=== PATIENT | male | born 1980 | race Caucasian/White ===

== ENCOUNTER 2016-09-22 21:59 | Emergency (ER) | payer SELFPAY ==
--- NOTE | 2016-09-22 23:03 | ER Document Report ---
ED General - General Chief Complaint: Numbness of Arm Stated Complaint: LEFT ARM NUMBNESS Time Seen by Provider: 09/22/16 23:00 Notes: Patient is a 36-year-old male who presents with complaint of sudden onset of left arm numbness that lasted approximately 1-2 minutes. Patient says it occurred while he was riding in the car. He never had any weakness in his arm. Never had a headache. No chest pain. No shortness of breath. No back pain. He denies any pain associated with his symptoms. No recent fevers. She has never had this in the past. He does have chronic hypertension. His blood pressure when he arrived was systolically 200. Patient says his blood pressure typically does run high. His heart rate is also elevated. Patient says his heart rate is also typically high. He says he also has high cholesterol. He takes hydralazine and hydrochlorothiazide. He said he did not take his hydrochlorothiazide today. TRAVEL OUTSIDE OF THE [place] IN LAST 30 DAYS: No Past Medical History - Social History Smoking Status: Never Smoker Frequency of alcohol use: None Drug Abuse: None Family History: Reviewed & Not Pertinent Patient has suicidal ideation: No Patient has homicidal ideation: No Renal/ Medical History: Denies: Hx Peritoneal Dialysis - Immunizations Hx Diphtheria, Pertussis, Tetanus Vaccination: No Review of Systems - Review of Systems Notes: My Normal Review Basic REVIEW OF SYSTEMS: CONSTITUTIONAL : Denies fever, chills, or sweats. Denies recent illness. EENT: Denies eye, ear, throat, or mouth pain or symptoms. Denies nasal or sinus congestion. CARDIOVASCULAR: Denies chest pain. RESPIRATORY: Denies cough, cold, or chest congestion. Denies shortness of breath, difficulty breathing, or wheezing. GASTROINTESTINAL: Denies abdominal pain. Denies nausea, vomiting, or diarrhea. Denies constipation. Last BM: MUSCULOSKELETAL: Denies neck or back pain or joint pain or swelling. SKIN: Denies rash or skin lesions. NEUROLOGICAL: Denies altered mental status or loss of consciousness. Denies headache. Denies weakness or paralysis or loss of use of either side. Denies problems with gait or speech. Brief numbness in left arm which is now completely resolved. ALL OTHER SYSTEMS REVIEWED AND NEGATIVE. Physical Exam - Vital signs Vitals: Temp Pulse Resp BP Pulse Ox 98.2 F 112 H 20 200/18 H 96 05/20/17 22:16 09/22/16 22:16 09/22/16 22:16 09/22/16 22:16 09/22/16 22:16 - Notes Notes: General Appearance: Well nourished, alert, cooperative, no acute distress, no obvious discomfort. Vitals: reviewed, See vital signs table. Head: no swelling or tenderness to the head Eyes: PERRL, EOMI, Conjuctiva clear Mouth: No decreasd moisture Neck: Supple, no neck tenderness, No thyromegaly Lungs: No wheezing, No rales, No rhonci, No accessory muscle use, good air exchange bilaterally. Heart: Normal rate, Regular rythm, No murmur, no rub Abdomen: Normal BS, soft, No rigidity, No abdominal tenderness, No guarding, no rebound, no abdominal masses, no organomegaly Extremities: strength 5/5 in all extremities, good pulses in all extremities, no swelling or tenderness in the extremities, no edema. Skin: warm, dry, appropriate color, no rash Neuro: speech clear, oriented x 3, normal affect, responds appropriately to questions. Cranial nerves II through XII are intact. Distal sensation intact. Patient moves all extremities without difficulty. Course - Vital Signs Vital signs: Temp Pulse Resp BP Pulse Ox 98.2 F 112 H 16 178/109 H 96 09/22/16 22:16 09/22/16 22:16 09/23/16 01:01 09/23/16 01:00 09/23/16 01:01 - Laboratory Result Diagrams: 09/22/16 23:45 09/22/16 23:45 Laboratory results interpreted by me: 09/22/16 09/22/16 23:45 23:45 WBC 11.6 H RDW 15.2 H Absolute Neutrophils 8.5 H Glucose 132 H Creatine Kinase 336 H - EKG Interpretation by Me Additional EKG results interpreted by me: 09/22/16 23:02 EKG is reviewed and interpreted by me. EKG shows sinus tachycardia with a rate of [address] segment elevation or depression. No ischemic T-wave inversions. NM interval, QRS duration, QT intervals are within normal range. No old EKG available for comparison. - Transfer of Care Notes: 09/23/16 06:06 I did reevaluate the patient. Patient remains tachycardic and hypertensive. I did talk to the patient at length about my concerns. I informed him that I want to perform a CT injury of the chest being that he continues to have tachycardia and hypertension. I do think dissection is less likely being he has no pain; however, his continued hypertension and tachycardia is concerning to me. I informed him what I am doing the CT scan. I told him that be to rule out damage or tearing of the aorta.. I told him that this would be a life- threatening problem. Patient says that she does not want to have another CT scan. Informed him that I strongly suggest that he at least have asked to admit him to get better control of his high blood pressure. I told him that continued high blood pressure could eventually lead to stroke, damage to his heart, or damage to his aorta. Informed them that all these things can lead to . Patient refuses to stay. Patient says he prefers to take his medication and follow-up with his doctor. I went back to the patient several times again offering him a chance to stay in the hospital requesting that he does. Patient continues to refuse to stay. I informed the patient that this really want what is best for him and that he is more than welcome to return to ER anytime if he changes his mind. I informed him that we will want him to return to the ER so that we can reevaluate him and treat him and get his symptoms under control. Patient showed understanding of this and shows appreciation for this and says that he would come back immediately if he felt his symptoms are worsening. Patient now also tells me that he was recently prescribed lisinopril but has not yet started it. I encouraged him to start this. Initially told me that he frequently feels like his heart is racing. Now he tells me that it is not that often that he feels that his heart is beating fast which may be even more concerned and again is another reason why I pushed him to stay in the hospital as I am very concerned with his vital signs and symptoms. Dictation of this chart was performed using voice recognition software; therefore, there may be some unintended grammatical errors. Discharge - Discharge Clinical Impression: Tachycardia, Left arm numbness Hypertension Qualifiers: Hypertension type: unspecified secondary hypertension Qualified Code(s): I15.9 - Secondary hypertension, unspecified Condition: Stable Disposition: AGAINST MEDICAL ADVICE Additional Instructions: I am very concerned with your continued high blood pressure and fast heart rate. I am also concerned with the symptoms of the left arm numbness that you had earlier today. The left arm numbness could be a sign of impending stroke. As discussed with you the fast heart rate and high blood pressure can also cause damage to your aorta (large blood vessel that comes off the heart ) and can also cause damage to the heart itself. Damage to either one of these can lead to immediate . I have concerns that if you are not treated immediately for your ongoing high blood pressure and fast heart rate that you could . I strongly suggest that you stay in the hospital so that we can do testing to check both of these and to also get your blood pressure and heart rate under control. I understand at this time you do not want to stay in the hospital. Please be aware that you are more than welcome to return and we strongly encourage you to return to the ER anytime so that we can continue your treatment and workup. Please follow-up with your doctor as soon as possible for reevaluation if you choose not to return to the ER.
[2016-09-22] MEDS ORDERED: AMLODIPINE BESYLATE 10 MG TABLET PO ONE (23:09)
[2016-09-22] MEDS ORDERED: HYDROCHLOROTHIAZIDE 25 MG TABLET PO ONE (23:09)
[2016-09-23 00:09] LABS: ABSOLUTE EOSINOPHILS # (AUTO) 0.2 10^3/uL (0.0-0.6); ABSOLUTE LYMPHOCYTES (AUTO) 2.2 10^3/uL (0.5-4.7); ABSOLUTE MONOCYTES (AUTO) 0.7 10^3/uL (0.1-1.4); ABSOLUTE NEUT (AUTO) 8.5 10^3/uL (1.7-8.2); BASOPHILS % (AUTO) 0.4 % (0-2); EOSINOPHILS % (AUTO) 1.4 % (0-6); HEMATOCRIT 41.3 % (37.9-51.0); HEMOGLOBIN 13.8 g/dL (13.5-17.0); HGB HCT DIFFERENCE 0.1; LYMPHOCYTES % (AUTO) 19.3 % (13-45); MEAN CORPUSCULAR HEMOGLOBIN 29.2 pg (27.0-33.4); MEAN CORPUSCULAR HGB CONC 33.3 g/dL (32.0-36.0); MEAN CORPUSCULAR VOLUME 88 fl (80-97); MONOCYTES % (AUTO) 6.3 % (3-13); RED BLOOD COUNT 4.72 10^6/uL (4.35-5.55); RED CELL DISTRIBUTION WIDTH 15.2 % (11.5-14.0); SEGMENTED NEUTROPHILS % (AUTO) 72.6 % (42-78); WHITE BLOOD COUNT 11.6 10^3/uL (4.0-10.5)
[2016-09-23 00:22] LABS: ALANINE AMINOTRANSFERASE 45 U/L (21-72); ALBUMIN 4.4 g/dL (3.5-5.0); ALKALINE PHOSPHATASE 110 U/L (38-126); ANION GAP 14 (5-19); ASPARTATE AMINO TRANSFERASE 30 U/L (17-59); BILIRUBIN,DIRECT 0.4 mg/dL (0.0-0.4); BILIRUBIN,TOTAL 0.6 mg/dL (0.2-1.3); BLOOD UREA NITROGEN 11 mg/dL (7-20); CARBON DIOXIDE 27 mmol/L (22-30); CHLORIDE 101 mmol/L (98-107); CREATINE KINASE 336 U/L (55-170); CREATININE RESULT 0.98 mg/dL (0.52-1.25); GLUCOSE 132 mg/dL (75-110); POTASSIUM 4.4 mmol/L (3.6-5.0); TOTAL PROTEIN 8.2 g/dL (6.3-8.2)
[2016-09-23 00:34] LABS: CREATINE KINASE MB 1.84 ng/mL (<4.55)
[2016-09-23 00:37] LABS: TROPONIN I < 0.012 ng/mL
[2016-09-23] MEDS ORDERED: LISINOPRIL 10 MG TABLET PO ONE (01:31)
[2016-09-23 01:56] VITALS: BP 178/109
--- NOTE | 2016-09-23 17:08 | EKG REPORT ---
SEVERITY:- BORDERLINE ECG - SINUS TACHYCARDIA PROBABLE LEFT ATRIAL ABNORMALITY CONSIDER RIGHT VENTRICULAR HYPERTROPHY : Confirmed by: Nolvia Castillo MD 23-Sep-2016 17:07:53
== END 2016-09-23 01:45 | disposition left against medical advice (07) ==
LOC: ER 21:59
DX: R00.0 Tachycardia, unspecified (principal); R20.0 Anesthesia of skin; I10 Essential (primary) hypertension; Z79.899 Other long term (current) drug therapy
CPT/HCPCS: 36415; 70450; 71010; 80053; 82550; 82553; 84484; 85025; 93005; 93010; 99284

== ENCOUNTER 2018-02-03 07:02 | Emergency (ER) | payer SELFPAY ==
[2018-02-03 07:23] VITALS: BP 139/79
[2018-02-03] MEDS ORDERED: LIDOCAINE 4% TOPICAL SOLN 50 ML TOP ONE (09:52)
--- NOTE | 2018-02-03 09:56 | ER Document Report ---
HPI - HPI Patient complains to provider of: FB right ear Pain Level: Denies Context: Pt. is a 38 year old male presenting to the ED with a FB in right ear. Stated he thinks it is a bug because he feels it moving around. Stated that he has had insects in his ear three times in the past and usually is able to flush them out with water. Stated that today he was unable to do that so came to the ED. Denies all other complaints. PMH: HTN, hyperlipidemia Meds: Lisinopril HCTZ, hydralazine, atorvastatin Allergies: None Surgeries: None Past Medical History - General Information source: Patient - Social History Smoking Status: Unknown if Ever Smoked Lives with: Family Family History: Reviewed & Not Pertinent Renal/ Medical History: Denies: Hx Peritoneal Dialysis - Immunizations Hx Diphtheria, Pertussis, Tetanus Vaccination: No Vertical Provider Document - CONSTITUTIONAL Notes: GENERAL: Alert, interacts well. No acute distress. HEAD: Normocephalic, atraumatic. EYES: Pupils equal, round, and reactive to light. Extraocular movements intact. ENT: Oral mucosa moist, tongue midline. Obvious moving insect in right ear canal. L TM and canal WNL. NECK: Full range of motion. Supple. Trachea midline. LUNGS: Clear to auscultation bilaterally, no wheezes, rales, or rhonchi. No respiratory distress. HEART: Regular rate and rhythm. No murmur ABDOMEN: Soft, non-tender. Non-distended. Bowel sounds present in all 4 quadrants. EXTREMITIES: Moves all 4 extremities spontaneously. BACK: no cervical, thoracic, lumbar midline tenderness. No saddle anesthesia, normal distal neurovascular exam. NEUROLOGICAL: Alert and oriented x3. Normal speech. PSYCH: Normal affect, normal mood. SKIN: Warm, dry, normal turgor. No rashes or lesions noted. - INFECTION CONTROL TRAVEL OUTSIDE OF THE [place] IN LAST 30 DAYS: No Course - Re-evaluation Re-evalutation: Attempted the grab insect with mosquito forceps-unsuccessful. Pt. was in a lot of pain d/t insect pushing up against TM. Will try Viscous Lido and then flushing. R ear canal flushed with over 1 liter of fluid from both myself and RN twice. Unable to grab insect with mosquito forceps, and unable to flush ear canal. Patient was currently in distress, we did not want to cause any further ear canal damage so referral to ENT will be given. Antibiotic eardrops will also be given to prevent possible infection. Patient okay with this treatment regimen, states he will call ENT when he leaves the ER. - Vital Signs Vital signs: Temp Pulse Resp BP Pulse Ox 98.3 F 105 H 20 139/79 H 97 02/03/18 07:21 02/03/18 07:21 02/03/18 07:21 02/03/18 07:21 02/03/18 07:21 Discharge - Discharge Clinical Impression: Foreign body in ear Qualifiers: Encounter type: initial encounter Laterality: right Qualified Code(s): T16.1XXA - Foreign body in right ear, initial encounter Condition: Stable Disposition: HOME, SELF-CARE Additional Instructions: As we discussed you have been seen in the emergency department for a foreign body in your right ear. We were unable to remove the foreign body. You are to follow-up with the phone number given, ear nose and throat (ENT) doctor. They have special tools to be able to remove the insect. Uses the prescribed ear drops until you follow-up with ENT for further evaluation. Prescriptions: Neomy Sulf/Polymyx B Sulf/Hc [Cortisporin Otic Susp] 3 drop AD TID #1 bottle Referrals: JUAN ALONSO DO [ASSOCIATE] - Follow up as needed
== END 2018-02-03 12:15 | disposition home or self-care (01) ==
LOC: ER 07:02
DX: T16.1XXA Foreign body in right ear, initial encounter (principal); X58.XXXA Exposure to other specified factors, initial encounter; I10 Essential (primary) hypertension; E78.5 Hyperlipidemia, unspecified; Z79.899 Other long term (current) drug therapy
CPT/HCPCS: 99282; J3490